=== PATIENT | male | born 1970 | race Caucasian/White ===

== ENCOUNTER 2016-07-13 19:17 | Emergency (ER) | payer OTHER ==
[2016-07-13 20:13] LABS: Hematocrit 43.8 % (42.0-52.0); Hemoglobin 14.1 gm/dL (13.5-18.0); Mean Cell Volume 89.8 fl (78-100); Mean Corpuscular Hemoglobin 28.9 pg (27-31); Mean Corpuscular Hgb Conc 32.2 g/dl (32-36); Neutrophil # 10.3 K/mm3 (1.3-6.0); Neutrophil % 72.3 % (42-75.0); Platelet Count 263 K/mm3 (150-450); Red Blood Count 4.88 M/mm3 (4.7-6.0); Red Cell Distribution Width 14.8 % (11.5-14.0); White Blood Count 14.3 K/mm3 (4.0-10.5)
[2016-07-13 20:27] LABS: Albumin * 3.2 gm/dl (3.4-5.0); Anion Gap 12.6 mmol/L (6.8-13.8); BUN/Creatinine Ratio 12.5 (9.0-21.6); Bilirubin, Total 0.5 mg/dL (0.0-1.1); Ca. Corrected For Albumin 9.2 mg/dL (8.4-10.2); Calcium * 8.9 mg/dL (7.9-10.9); Carbon Dioxide 29.6 mmol/L (24-32.6); Potassium 4.2 mmol/L (3.4-4.6); Total Protein 7.8 gm/dL (6.2-8.2)
--- OUTSIDE RECORDS SUMMARY | 2016-07-13 21:03 | XMS REPORT | Continuity of Care Document ---
:1970 Author Organization [facility] ([facility]) Address [address] [place] [address] Phone [phone] Care Team Providers Name Role Phone Alin Khanna Primary Care Provider [phone] Source Comments This disclosure is being made pursuant to the Care Everywhere program, applicable federal and state laws, and may not contain all informaitonavailable regarding this patient.[facility] ([facility]) Active Allergies and Adverse Reactions Allergen Noted Date Severity Reactions Comments Other Agent 05/08/2012 Nausea & Vomiting Eggs/ cheese Current Medications Prescription Sig. Disp. Refills Start Date End Date Status amoxicillin-clavulanate Take 1 Tab by mouth Active (AUGMENTIN) 875-125 mg 2 times daily. per tablet CALCIUM CARBONATE/VITAMIN Take 10,000 Units Active D3 (VITAMIN D-3 PO) by mouth every week. polyethylene glycol 3350 Take 17 g by mouth Active (MIRALAX) 17 gram/dose daily. powder ranitidine 150 mg capsule Take 150 mg by Active mouth 2 times daily. risperiDONE 1 mg tablet Take 1 mg by mouth Active daily. MULTIVITS,-,OTHER Take 1 Tab by mouth Active MIN (THERA-M PO) daily. VITAMIN B COMPLEX Take 1 Tab by mouth Active NO.12-NIACIN PO daily. loperamide 2 mg tablet Take 2 mg by mouth Active as needed. bisacodyl 10 mg insert 10 mg Active suppository rectally as needed. docusate 100 mg capsule Take 100 mg by Active mouth 2 times daily as needed. LORazepam 0.5 mg tablet Take 0.5 mg by Active mouth 3 times daily as needed. magnesium hydroxide (MILK Take 30 mL by mouth Active OF MAGNESIA CONCENTRATE) daily as needed. 2,400 mg/10 mL suspension acetaminophen 500 mg Take 1,000 mg by Active tablet mouth every 4 hours as needed. Active Problems Problem Noted Date Pilonidal cyst 05/08/2012 Morbid obesity 09/29/2006 Atrial flutter 09/29/2006 Other malaise and fatigue 05/08/2006 Anoxic brain damage 03/04/2005 Immunizations Name Dates Previously Given Next Due Pneumococcal, unspecified 11/13/2004 Social History Tobacco Use Types Packs/Day Years Used Date Never Smoker Last Filed Vital Signs Vital Sign Reading Time Taken Blood Pressure 128/76 05/08/2012 9:25 AM CDT Pulse 79 05/08/2012 9:25 AM CDT Temperature 36.7 C (98.1 F) 05/08/2012 9:25 AM CDT Respiratory Rate 16 05/12/2006 12:00 PM CDT Height 0.67 m (2' 2.38") 05/08/2012 9:29 AM CDT Weight 142.429 kg (314 lb) 05/08/2012 9:29 AM CDT Body Mass Index 317.28 05/08/2012 9:29 AM CDT Oxygen Saturation - - Plan of Care Health Maintenance Due Date Last Done Comments Hepatitis B Vaccine (1 of 3 - Primary Series) 1970 Tdap Vaccine 1979 Lipid Disorder Screening 1986 MMR Vaccine 1986 Td Vaccine 1986 Influenza Vaccine: Seasonal (#1) 09/14/2015 Results from Last 3 Months Not on file
--- OUTSIDE RECORDS SUMMARY | 2016-07-13 21:03 | XMS REPORT | Continuity of Care Document ---
:1970 Author Organization [facility] [place] [address] Care Team Providers Name Role Phone Unavailable Primary Care Provider Unavailable Source Comments This disclosure is being made pursuant to the [employer] program and maynot contain all information available regarding this patient.[facility] Active Allergies and Adverse Reactions Not on File Current Medications Be aware that medications may not be up to date as of this document. Alwaysverify current medications with the patient. Not on file Active Problems Not on file Social History Tobacco Use Types Packs/Day Years Used Date Never Assessed Plan of Care Health Maintenance Due Date Last Done Comments Retired-Pertussis Vaccine Adult 1987 Retired-Tetanus Vaccine Adult 1987 Retired-INFLUENZA VACCINE 10/14/2014 Results from Last 3 Months Not on file
[2016-07-13] MEDS ORDERED: GLUCAGON,HUMAN RECOMBINANT 1 MG VIAL ONE (21:05)
[2016-07-13] MEDS ORDERED: PANTOPRAZOLE SODIUM 40 MG/100 ML PIGGYBACK IV ONE (21:05)
[2016-07-13] MEDS: GLUCAGON,HUMAN RECOMBINANT 1 MG VIAL IV ONE (21:15)
[2016-07-13] MEDS: PANTOPRAZOLE SODIUM 40 MG in NORMAL SALINE 100 ML IV ONE (21:16)
--- NOTE | 2016-07-13 22:10 | ERNOTE ---
Date of Service: 07/13/16 Time Seen by Provider: 07/13/16 20:26 Stated Complaint: VOMITTING, LOSS OF APPETITE Source: patient, family, RN notes reviewed, past records Exam Limitations: other - Patient is a poor historian Immunizations: IMMUNIZATION HX Immunizations Up to Date Yes History of Influenza Vaccine Yes Hx Pneumococcal Vaccination No Allergies/Adverse Reactions: Allergies cheese cheddar fl *RETIRED-09/17/12 [cheese cheddar flavor] Adverse Reaction ( Unverified 02/09/12 16:04) Home Medications: HOME MEDICATIONS Acetaminophen [Tylenol Extra Strength] 1,000 mg PO Q4HWA PRN 02/09/12 [Last Taken Unknown] Bisacodyl [Bisacodyl (Dulcolax) Suppository] 10 mg RC PRN 02/09/12 [Last Taken Unknown] Cholecalciferol (Vitamin D3) [Maximum D3] 10,000 unit PO DAILY 02/09/12 [Last Taken Unknown] Cyanocobalamin (Vitamin B-12) [Vitamin B-12] 2,500 mcg SL DAILY 02/09/12 [Last Taken Unknown] Docusate Sodium [Docu Soft] 100 mg PO PRN 02/09/12 [Last Taken Unknown] LORazepam [Ativan] 0.5 mg PO PRN 02/09/12 [Last Taken Unknown] Loperamide HCl [Anti-Diarrheal] 2 mg PO PRN 02/09/12 [Last Taken Unknown] Magnesium Hydroxide [Milk Of Magnesia] 30 ml PO PRN 02/09/12 [Last Taken Unknown ] Multivit,Tx with Iron,Minerals [Thera-M] 1 each PO DAILY 02/09/12 [Last Taken Unknown] Polyethylene Glycol 3350 [Laxative Peg 3350] 17 gm PO BID 02/09/12 [Last Taken Unknown] Ranitidine HCl [Acid Control] 150 mg PO BID 02/09/12 [Last Taken Unknown] risperiDONE [Risperdal] 1 mg PO HS 02/09/12 [Last Taken Unknown] - History of Present Ilness Narrative: Justin is a 46-year-old male brought to the emergency department by ambulance from [facility] [place], operated by [facility] for concerns about aspiration pneumonia. He is normally on a pured diet, but over the past couple of days he has had gradually increasing difficulty swallowing this without gagging and vomiting. She was then noted to be coughing more frequently and that the cough sounded very loose. A chest x-ray was obtained at the retirement today. This was without any acute findings. The patient states that his throat is somewhat sore and that it is difficult to swallow. He denies feeling nauseous, but reports feeling like he is going to gag when he tries to swallow. 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 His sister reports that the stroke was the result of a thyroid crisis. He was comatose for time and had a tracheostomy. He also suffered a foot drop during that time. He transfers with a Ariana lift. The patient's sister reports that he is a full code. She is his POA. Timing: getting worse Frequency/Possible Cause: Reports: unknown cause. Denies: illness exposure, foreign travel Associated Symptoms: Denies: shortness of breath, wheezing, nasal congestion, nasal drainage, headache, fever/chills Prior Treatment: Denies: currently on antibiotics Review of Systems - Review of Systems Constitutional: Absent: recent illness, fever, chills EYE: Present: no symptoms reported ENT: Present: sore throat, throat swelling. Absent: nose congestion, nasal drainage Respiratory: Present: cough. Absent: shortness of breath, stridor Cardiology: Absent: chest pain, edema Gastrointestinal/Abdominal: Present: vomiting, eating less, drinking less. Absent: nausea, diarrhea, constipation, abdominal pain Genitourinary: Present: no symptoms reported Musculoskeletal: Absent: muscle stiffness, neck pain Skin: Absent: rash, lesions, lumps Neurological: Present: pre-existing deficit. Absent: headache, dizziness/light- headedness Endocrine: Present: no symptoms reported Hematologic/Lymphatic: Present: no symptoms reported Psych: Present: no symptoms reported - Patient's Past Medical History Patient History - Medical: GERD, Obesity, Other - Hypoxic brain injury, hyperthyroidism Patient History - Cardiac/Respiratory: Coronary Heart Disease, CVA/Stroke, Sleep Apnea Patient History - Cancer: No Hx of Cancer Patient History - Surgical Procedures: No surgical history Patient History - Other: None - Social History Living Situations: retirement Psych History: Hx of Anxiety, Hx of Depression, Hx of Psychiatric Tx Smoking Status: Unknown if ever smoked Alcohol Use: none Drug Use: none - Immunizations Immunizations Up to Date: Yes Hx Pneumococcal Vaccination: No History of Influenza Vaccine: Yes Physical Exam - Physical Exam General Appearance: Present: alert, mild distress, obese Ears, Nose, Throat: Present: other - copious mucus in pharynx. Absent: nasal congestion, sinus pain/drainage, pharyngeal erythema, pharyngeal swelling, dry mucous membranes Neck: Present: nontender, supple. Absent: lymphadenopathy (R), lymphadenopathy (L) Respiratory: Present: no accessory muscle use, decreased breath sounds - d/t patient's size, shallow respirations, other - noisy respirations, excessive upper airway secretions. Absent: crackles, rales, stridor, wheezing Cardiovascular/Chest: Present: no murmur, normal peripheral pulses, tachycardia Peripheral Pulses: N=norm/S=strong/W=weak/B=bound/A=absent: Dorsalis-pedis (R): Strong, Dorsalis-pedis (L): Strong Gastrointestinal/Abdominal: Present: nontender, nondistended - but obese, soft Extremity Exam: Present: non-tender, no edema, decreased range of motion - foot drop Neurological Exam: Present: alert, oriented. Absent: normal mood/affect - flat affect Skin Exam: Present: warm/dry, pallor ED Progress - Results and Orders Patient's Lab Results:: I have reviewed the patient's lab results. - Vital Signs Patient's Vital Signs:: I have reviewed the patient's vital signs. Vital Signs: Vital Signs 07/13/16 07/13/16 07/13/16 19:21 20:11 20:34 Temperature 36.2 C L 36.4 C L Pulse Rate 101 H 88 107 H Respiratory 16 10 L 10 L Rate Blood Pressure 110/69 110/69 112/73 O2 Sat by Pulse 98 96 94 Oximetry 07/13/16 07/13/16 07/13/16 20:42 21:13 21:37 Temperature 36.3 C L Pulse Rate 100 110 H 113 H Respiratory 13 11 L 11 L Rate Blood Pressure 126/78 124/79 102/63 O2 Sat by Pulse 99 99 94 Oximetry - X-Ray X-Ray #1 X-Ray: Soft tissue neck Interpretation: Reviewed by me X-ray Comments: TECHNIQUE: AP and lateral views of the soft tissue neck obtained by portable technique. COMPARISONS: None available. Neck for Soft Tissue Nasopharynx and oropharynx grossly unremarkable. Vallecula unremarkable. Epiglottis appears to be unremarkable without abnormal thickening. Aryepiglottic fold is obscured by the patient's shoulder. Prevertebral soft tissues as visualized, grossly unremarkable. There is no definite signs of radiopaque or metallic foreign body. There is symmetric narrowing of the subglottic trachea, of moderate degree with narrowest diameter of the trachea being approximately 7-8 mm and the caliber of the normal distal segment measuring approximately 19 mm. Visualized portions of the chest grossly unremarkable. Osseous structures are grossly intact. Edentulous mandible and maxilla noted. IMPRESSION: 1. Symmetric narrowing of the subglottic trachea as above. Correlate clinically for tracheitis. Other considerations include mass versus thyroid enlargement. 2. Additional comments and limitations are as above. Electronically signed by Amy Rebolledo M.D.. X-Ray #2 X-Ray: chest Interpretation: Reviewed by me X-ray Comments: No focal consolidation Enlargement of the azygos shadow of the mediastinum - Progress/Reassessment Chief Complaint: Upper Respiratory Symptoms Progress:: Unchanged Plan - Plan Plan: Tracheal narrowing present on soft tissue neck of unknown etiology, WBC mildly elevated but patient is afebrile. Patient has copious upper airway secretions. Rare cough noted. Glucagon given without any improvement in swallowing difficulty. Protonix also given with no change. [facility] contacted for transfer d/t ENT availability and patient's multiple comorbidities. Departure - Departure Clinical Impression: Acute tracheitis Qualifiers: Airway obstruction: without obstruction Qualified Code(s): J04.10 - Acute tracheitis without obstruction Dysphagia Qualifiers: Dysphagia type: unspecified Qualified Code(s): R13.10 - Dysphagia, unspecified Disposition: [facility] Condition: Fair
[2016-07-13 22:24] VITALS: BP 128/68
== END 2016-07-13 23:24 | disposition short-term general hospital (02) ==
LOC: ER 19:17
DX: J04.10 Acute tracheitis without obstruction (principal); R13.10 Dysphagia, unspecified; I25.10 Atherosclerotic heart disease of native coronary artery without angina pectoris; Z86.73 Personal history of transient ischemic attack (TIA), and cerebral infarction without residual deficits

== ENCOUNTER 2017-01-16 22:06 | Emergency (ER) | payer OTHER ==
--- NOTE | 2017-01-16 22:22 | ERNOTE ---
Dyspnea - General Presenting Symptoms: shortness of breath Time Seen by Provider: 01/16/17 22:10 Source: [place], [place] [facility] Exam Limitations: no limitations - Immun/Allergies/Home Medications Immunizations: IMMUNIZATION HX Immunizations Up to Date Yes History of Influenza Vaccine Yes Hx Pneumococcal Vaccination No Allergies/Adverse Reactions: Allergies cheese cheddar fl *RETIRED-09/17/12 [cheese cheddar flavor] Adverse Reaction ( Verified 01/17/17 02:28) Home Medications: HOME MEDICATIONS Bisacodyl [Bisacodyl (Dulcolax) Suppository] 10 mg RC DAILY PRN 02/09/12 [Last Taken Unknown] Cholecalciferol (Vitamin D3) [Maximum D3] 10,000 unit PO DAILY 02/09/12 [Last Taken Unknown] Cyanocobalamin (Vitamin B-12) [Vitamin B-12] 2,500 mcg SL DAILY 02/09/12 [Last Taken Unknown] LORazepam [Ativan] 2 mg PO QID PRN 02/09/12 [Last Taken Unknown] Magnesium Hydroxide [Milk Of Magnesia] 30 ml PO DAILY PRN 02/09/12 [Last Taken Unknown] Multivit,Tx with Iron,Minerals [Thera-M] 1 each PO DAILY 02/09/12 [Last Taken Unknown] Polyethylene Glycol 3350 [Laxative Peg 3350] 17 gm PO BID 02/09/12 [Last Taken Unknown] Acetaminophen [Tylenol] 500 mg PO QID PRN 01/17/17 [Last Taken Unknown] Amox Tr/Potassium Clavulanate [Augmentin Es 600-42.9/5 Suspension] 7 ml PO BID # 75 ml 01/17/17 [Last Taken Unknown] Haloperidol Lactate [Haldol] 5 mg IM TID PRN 01/17/17 [Last Taken Unknown] LORazepam [Ativan] 1 mg PO QID PRN 01/17/17 [Last Taken Unknown] Levothyroxine Sodium [Synthroid] 50 mcg PO DAILY 01/17/17 [Last Taken Unknown] Omeprazole [Prilosec] 20 mg PO DAILY 01/17/17 [Last Taken Unknown] Sennosides/Docusate Sodium [Senna-S Tablet] 2 each PO DAILY 01/17/17 [Last Taken Unknown] Ziprasidone HCl [Geodon] 60 mg PO TID 01/17/17 [Last Taken Unknown] - History of Present Illness Narrative: Pt was eating pudding and choked, he became aggitated and was coughing a lot. SaO2 has been WNL except when couging. Pt is minimally responsive but stable at this time Severity: moderate Treatment [employer]: paramedics, oxygen Initiating event: Reports: aspiration/choking Frequency of episodes: Reports: occassional episodes - Pt on thickened diet due to dysphagia Review of Systems - Narrative Narrative: Pt unresponsive and unable to answer questions: ROS from NH and EMS reports - Review of Systems Constitutional: Absent: recent illness EYE: Present: no symptoms reported ENT: Present: no symptoms reported Respiratory: Present: shortness of breath, cough, wheezing Cardiology: Present: no symptoms reported Gastrointestinal/Abdominal: Present: other - difficulty swallowing Genitourinary: Present: no symptoms reported Musculoskeletal: Present: no symptoms reported Skin: Present: no symptoms reported Neurological: Present: no symptoms reported Endocrine: Present: no symptoms reported Hematologic/Lymphatic: Present: no symptoms reported Psych: Present: no symptoms reported - Patient's Past Medical History Patient History - Medical: GERD, Obesity, Other - Hypoxic brain injury, hyperthyroidism Patient History - Cardiac/Respiratory: Coronary Heart Disease, CVA/Stroke, Sleep Apnea Patient History - Cancer: No Hx of Cancer Patient History - Surgical Procedures: No surgical history Patient History - Other: None - Social History Psych History: Hx of Anxiety, Hx of Depression, Hx of Psychiatric Tx - Immunizations Immunizations Up to Date: Yes Hx Pneumococcal Vaccination: No History of Influenza Vaccine: Yes Physical Exam - Physical Exam General Appearance: Present: wd/wn, lethargic Head Exam: Present: normal inspection, no evidence of injury Ears, Nose, Throat: Present: normal ENT inspection Neck: Present: normal inspection, supple Respiratory: Present: no respiratory distress, rhonchi Cardiovascular/Chest: Present: regular rate, rhythm, no murmur Gastrointestinal/Abdominal: Present: normal bowel sounds, nontender, nondistended, soft Extremity Exam: Present: pedal edema, extremity edema - +1 Neurological Exam: Present: other - minimal responsiveness Skin Exam: Present: normal color, warm/dry Lymphatic Exam: Present: no adenopathy ED Progress - Results and Orders Patient's Lab Results:: I have reviewed the patient's lab results. Results and Orders: Laboratory Tests 01/16/17 01/16/17 23:35 23:35 WBC 13.8 H Hgb 13.4 L Hct 41.9 L Plt Count 270 Sodium 140 Potassium 3.9 Chloride 104 Carbon Dioxide 31.4 Anion Gap 8.5 BUN 6 Creatinine 0.85 Random Glucose 109 Calcium 8.4 Total Bilirubin 0.3 AST 31 ALT 29 Alkaline Phosphatase 117 Total Protein 6.5 Albumin 2.5 L - Vital Signs Patient's Vital Signs:: I have reviewed the patient's vital signs. - X-Ray X-Ray #1 X-Ray: chest Interpretation: Interp. by me X-ray Comments: no evidence of aspiration, no infiltrate or edema - Progress/Reassessment Progress:: Improved Progress Note-Subjective: 01/17/17 02:03 Pt is awake and alert. Respirations have been even and non-labored. SaO2 have been 98-100%. Departure Clinical Impression: Choking episode - Departure Disposition: [facility] Condition: Good Instructions: Dysphagia Prescriptions: Amox Tr/Potassium Clavulanate [Augmentin Es 600-42.9/5 Suspension] 7 ml PO BID # 75 ml
[2017-01-16] MEDS ORDERED: ALBUTEROL SULFATE/IPRATROPIUM 3 ML NEBU IH ONE (23:24)
[2017-01-16 23:39] LABS: Hematocrit 41.9 % (42.0-52.0); Hemoglobin 13.4 gm/dL (13.5-18.0); Mean Cell Volume 90.5 fl (78-100); Mean Corpuscular Hemoglobin 28.9 pg (27-31); Mean Platelet Volume 10.5 fl (6.0-9.5); Neutrophil # 9.4 K/mm3 (1.3-6.0); Neutrophil % 68.2 % (42-75.0); Platelet Count 270 K/mm3 (150-450); Red Blood Count 4.63 M/mm3 (4.7-6.0); Red Cell Distribution Width 15.4 % (11.5-14.0); White Blood Count 13.8 K/mm3 (4.0-10.5)
[2017-01-16 23:55] LABS: Albumin * 2.5 gm/dl (3.4-5.0); Anion Gap 8.5 mmol/L (6.8-13.8); BUN/Creatinine Ratio 7.1 (9.0-21.6); Bilirubin, Total 0.3 mg/dL (0.0-1.1); Ca. Corrected For Albumin 9.3 mg/dL (8.4-10.2); Calcium * 8.4 mg/dL (7.9-10.9); Carbon Dioxide 31.4 mmol/L (24-32.6); Potassium 3.9 mmol/L (3.4-4.6); Total Protein 6.5 gm/dL (6.2-8.2)
[2017-01-17] MEDS ORDERED: AMOX TR/POTASSIUM CLAVULANATE 875 MG TABLET PO ONE (02:02)
[2017-01-17] MEDS ORDERED: AMOX TR/POTASSIUM CLAVULANATE 875 MG TABLET ONE (02:32)
[2017-01-17] MEDS ORDERED: ALBUTEROL SULFATE/IPRATROPIUM 3 ML NEBU IH ONE (02:32)
[2017-01-17 04:07] VITALS: BP 106/56
== END 2017-01-17 03:57 ==
LOC: ER 22:06
DX: R09.89 Other specified symptoms and signs involving the circulatory and respiratory systems (principal); E03.9 Hypothyroidism, unspecified